=== PATIENT | female | born 1950 | race African-American/Black ===

== ENCOUNTER 2017-11-05 16:08 | Emergency (ER) | payer MEDICARE, MEDICAID ==
[~2017-11-05] VITALS: Ht 162.6 cm; Wt 65.0 kg
[~2017-11-05 16:08] MED LIST: AMLO10TA2 PO; ATOR20TA15 PO; LOSA50TA PO; METO25TA3 PO; RENATAB6 PO; SEVE800 PO; VITA2000 PO
[2017-11-05 16:14] VITALS: BP 156/67; PULSE 62; RESP 17; TEMP 98.1; O2SAT 98
--- NOTE | 2017-11-05 17:19 | RADRPT ---
EXAM DATE/TIME: 11/05/2017 17:09 [place] COMPARISON: No previous studies available for comparison. INDICATIONS : Patient complains of tuft pain on 5th digit, left foot. Injury 6 months ago but starting to hurt chivo horn recently. MEDICAL HISTORY : None. SURGICAL HISTORY : None. ENCOUNTER: Initial ACUITY: 2 days PAIN SCORE: 10/10 LOCATION: Left foot, 5th tuft. FINDINGS: Examination of the fifth digit of the left foot demonstrates no evidence of fracture or dislocation. No radiopaque foreign bodies are seen. The soft tissues are intact. CONCLUSION: Negative for fracture Ananda Kevin MD FACR on November 05, 2017 at 17:17 Board Certified Radiologist. This report was verified electronically.
[2017-11-05] MEDS ORDERED: DICL75TA PO (17:24)
[2017-11-05] MEDS ORDERED: CEPH-460 PO (17:24)
--- NOTE | 2017-11-05 17:48 | PD ---
HPI Chief Complaint: Skin Problem Time Seen by Provider: 16:51 Travel History International Travel<30 days: No Contact w/Intl Traveler<30days: No Traveled to known affect area: No History of Present Illness HPI 67-year-old female that presents to the ED for evaluation of left fifth toe pain that she has had for "a while". Per patient she has been developing this pain for some time. Per patient she went to see her doctor who recommended she go see a lead generation representative for x-rays and further eval. She comes here to get evaluated because she has not been able to follow-up with a lead generation representative. She states that the pain comes and goes and when he gets severe is 8 out of [address] to her knee. Per patient she denies any injury or trauma. She is concerned for infection. She has a history of diabetes. No other medical issues. No urinary bowel movement issues. No fevers chills or sweats. No swelling. No previous surgeries. Has not taken anything for this. PFSH Past Medical History Arthritis: Yes (rheumatoid ) Blood Disorders: Yes Cancer: No Cardiovascular Problems: No Cerebrovascular Accident: Yes Diabetes: No Diminished Hearing: No Endocrine: No Genitourinary: No Hepatitis: No Hiatal Hernia: No Hypertension: Yes Immune Disorder: No Medical other: Yes (Hx of blood clots) Musculoskeletal: No Neurologic: Yes (stroke in November 2015 loss of balance) Psychiatric: No Reproductive: No Respiratory: No Renal Failure: Yes Thyroid Disease: No Tetanus Vaccination: Unknown Influenza Vaccination: Yes Menopausal: Yes : 4 Para: 4 Past Surgical History AICD: No Body Medical Devices: r vas cath port Joint Replacement: No Pacemaker: No Other Surgery: Yes (FISTULA RUE FOR DIALYSIS) Social History Alcohol Use: No Tobacco Use: No Substance Use: No Allergies-Medications (Allergen,Severity, Reaction): Coded Allergies: No Known Allergies (Verified Adverse Reaction, Unknown, 11/05/17) Reported Meds & Prescriptions Reported Meds & Active Scripts Active Keflex (Cephalexin) 500 Mg Cap 500 Mg PO Q8H [address] (Diclofenac Sodium) 75 Mg Tabdr 75 Mg PO BID PRN Reported Vitamin D3 (Cholecalciferol) 2,000 Unit Cap 2,000 Units PO DAILY Atorvastatin (Atorvastatin Calcium) 20 Mg Tab 20 Mg PO HS Metoprolol Tartrate 25 Mg Tab 25 Mg PO BID Amlodipine (Amlodipine Besylate) 10 Mg Tab 10 Mg PO DAILY Review of Systems Except as stated in HPI: all other systems reviewed are Neg Physical Exam Narrative GENERAL: SKIN: Warm and dry. HEAD: Atraumatic. Normocephalic. EYES: Pupils equal and round. No scleral icterus. No injection or drainage. ENT: No nasal bleeding or discharge. Mucous membranes pink and moist. Tongue is midline. No uvula deviation. NECK: Trachea midline. No JVD. CARDIOVASCULAR: Regular rate and rhythm. No murmurs, S3, S4. RESPIRATORY: No accessory muscle use. Clear to auscultation. Breath sounds equal bilaterally. GASTROINTESTINAL: Abdomen soft, non-tender, nondistended. Hepatic and splenic margins not palpable. MUSCULOSKELETAL: Extremities without clubbing, cyanosis, or edema. No obvious deformities. Full range of motion of the upper and lower extremities bilaterally. 2+ pulses bilaterally. Full range of motion of all toes. No obvious deformity to the toes especially to the fifth toe although she does appear to have a little bit more swelling on the left toe than the right. The nail itself appears to be intact and there is no sign of purulence although there is some swelling on the side of the nail. NEUROLOGICAL: Awake and alert. No obvious cranial nerve deficits. Motor grossly within normal limits. Five out of 5 muscle strength in the arms and legs. Normal speech. PSYCHIATRIC: Appropriate mood and affect; insight and judgment normal. Data Data Last Documented VS Vital Signs Date Time Temp Pulse Resp B/P (MAP) Pulse Ox O2 Delivery O2 Flow Rate FiO2 11/05/17 16:59 18 11/05/17 16:14 98.1 62 156/67 (96) 98 Orders Orders Toe (Min 2vws) (11/05/17 ) [facility] Medical Decision Making Medical Screen Exam Complete: Yes Emergency Medical Condition: Yes Medical Record Reviewed: Yes Differential Diagnosis Paronychia versus chronic pain versus gout versus cellulitis versus fracture Narrative Course 67-year-old female that presents to the ED for evaluation of left fifth toe pain. Patient was properly examined and was found to have signs and symptoms of unclear etiology would likely chronic. She does have a history of gout but does not appear to be gout. X-ray was ordered. X-ray was negative for acute disease. Patient was reassured. Patient does have a little bit of swelling compared to the left. Do not think that this is infected but will cover with Keflex for possible infection. Patient was given a prescription for diclofenac sodium for pain to use only if needed. Recommend that she follows up with a lead generation representative as her doctor wanted her to. See ED if worsening symptoms. Follow- up with PCP. Diagnosis Primary Impression: Toe pain, left Patient Instructions: General Instructions Additional Instructions: Take medications as prescribed. Follow with your lead generation representative. See ED if worsening symptoms. Med/Other Pt SpecificInfo: Prescription(s) given Scripts Cephalexin (Keflex) 500 Mg Cap 500 MG PO Q8H for Infection for 10 Days, #30 CAP 0 Refills Prov: Jose Ramon Perez MD 11/05/[address] (Diclofenac Sodium DR) 75 Mg Tabdr 75 MG PO BID Y for PAIN SCALE 1 TO 10, #20 TAB 0 Refills Prov: Jose Ramon Perez MD 11/05/17 Disposition: 01 DISCHARGE HOME Condition: Stable Surya Toscano November 05, 2017 17:48
[2017-11-05 18:20] VITALS: BP 130/76; TEMP 97.8
== END 2017-11-05 18:20 | disposition home or self-care (01) ==
LOC: NEPC 16:08
DX: M79.675 Pain in left toe(s) (principal); I12.0 Hypertensive chronic kidney disease with stage 5 chronic kidney disease or end stage renal disease; E11.22 Type 2 diabetes mellitus with diabetic chronic kidney disease; N18.6 End stage renal disease; Z99.2 Dependence on renal dialysis; Z86.718 Personal history of other venous thrombosis and embolism; Z86.73 Personal history of transient ischemic attack (TIA), and cerebral infarction without residual deficits
CPT/HCPCS: 73660; 99283

== ENCOUNTER 2018-05-06 17:18 | Observation (INO) ==
--- NOTE | 2018-05-06 18:53 | ED ---
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 She reports that today she was at dialysis when at 4:30 PM she developed some shortness of breath and "tunnel vision." She reports that the symptoms lasted for 10 seconds and then resolved. She was sent here for further evaluation. She reports that received most of the dialysis treatment however missed the last hour. She is currently asymptomatic. She denies any chest pain. She denies any cough, congestion, abdominal pain, nausea, vomiting, diarrhea, recent illness. She reports that this is happened 4 times in the past while receiving dialysis. She has no other complaints at this time. Related Data Home Medications Medication Instructions Recorded Confirmed amlodipine 10 mg PO DAILY 04/19/18 05/06/18 atorvastatin 10 mg PO DAILY 04/19/18 05/06/18 cholecalciferol (vitamin D3) 1,000 unit PO DAILY 04/19/18 05/06/18 [Vitamin D3] Previous Rx's Medication Instructions Recorded sodium polystyrene sulfonate 60 ml PO DAILY #120 ml 04/20/18 [sodium polystyrene (sorb free)] hydralazine 25 mg PO TID 30 Days #90 tab 05/07/18 Allergies Allergy/AdvReac Type Severity Reaction Status Date / Time No Known Allergies Allergy Verified 04/20/18 17:52 Review of Systems ROS: all other systems reviewed are negative PMFSH Social History Social History Substance History: No History of Abuse Second Hand Smoke Exposure: No Smoking Status: Former smoker Tobacco Type: Cigarettes How Often Do You Have a Drink Containing Alcohol: Never Recent Travel in [place] within the Last 8 Weeks: No Recent Out of Country Travel within the Last 8 Weeks: No Immunization History Tetanus Immunization: Unsure Exam Narrative Exam Narrative: GENERAL: Well-developed well-nourished female no acute distress SKIN: Warm and dry. HEAD: Atraumatic. Normocephalic. EYES: Pupils equal and round. No scleral icterus. No injection or drainage. ENT: No nasal bleeding or discharge. Mucous membranes pink and moist. NECK: Trachea midline. No JVD. CARDIOVASCULAR: Regular rate and rhythm. No murmur appreciated. RESPIRATORY: No accessory muscle use. Clear to auscultation. Breath sounds equal bilaterally. GASTROINTESTINAL: Abdomen soft, non-tender, nondistended. Hepatic and splenic margins not palpable. MUSCULOSKELETAL: No obvious deformities. No clubbing. No cyanosis. No edema. Right upper extremity AV fistula noted with palpable thrill. NEUROLOGICAL: Awake and alert. No obvious cranial nerve deficits. Motor grossly within normal limits. Normal speech. Course Initial Documented Vital Signs Temperature 98.1 F 05/06/18 17:23 Pulse Rate 78 05/06/18 17:23 Respiratory Rate 22 05/06/18 17:23 Blood Pressure 140/58 L 05/06/18 17:23 Pulse Oximetry 98 05/06/18 17:23 Last Documented Vital Signs Temperature 99.0 F 05/07/18 12:00 Pulse Rate 68 05/07/18 12:00 Respiratory Rate 16 05/07/18 12:00 Blood Pressure 165/78 H 05/07/18 12:00 Pulse Oximetry 99 05/07/18 12:[address] [facility] Narrative Medical decision making narrative: 68-year-old female presents after having a 10 -second episode of dyspnea and "tunnel vision" during dialysis today. Otherwise asymptomatic, currently asymptomatic. She appears well. She was here in April under similar circumstances. The patient was placed on ECG monitoring pulse oximetry. A 12-lead EKG was obtained. Lab work, chest x-ray ordered. EKG reveals sinus rhythm with a rate of 69, prolonged QTC at 450ms, last EKG in April revealed prolonged QTC as well. Lab work consistent with renal failure otherwise unremarkable with no electrolyte abnormalities. Chest x-ray reveals no acute abnormalities. At this point no obvious etiology for her symptoms, discussed with my attending and the plan will be to admit her for observation. Medical Screen Exam Complete: Yes Emergency Medical Condition: Yes Differential Diagnosis Differential Diagnosis: Hypotensive episode, pulmonary edema, arrhythmia, electrolyte abnormality, spontaneous pneumothorax, pulmonary embolism Lab Data Result diagrams: 05/07/18 07:27 05/07/18 07:27 Lab Results 05/06/18 05/06/18 05/06/18 Range/Units 18:50 18:50 18:56 WBC 6.7 (4.0-11.0) th/mm3 RBC 4.01 (4.00-5.30) mil/mm3 Hgb 12.8 (11.6-15.3) gm/dL Hct 40.2 (35.0-46.0) % MCV 100.1 H (80.0-100.0) fL MCH 32.0 (27.0-34.0) pg MCHC 31.9 L (32.0-36.0) % RDW 15.5 (11.6-17.2) % Plt Count 169 D (150-450) th/mm3 MPV 7.6 (7.0-11.0) fL Neut % (Auto) 68.6 (16.0-70.0) % Lymph % (Auto) 22.5 (9.0-44.0) % Cooper % (Auto) 8.1 H (0.0-8.0) % Eos % (Auto) 0.4 (0.0-4.0) % Baso % (Auto) 0.4 (0.0-2.0) % Neut # (Auto) 4.6 (1.8-7.7) th/mm3 Lymph # (Auto) 1.5 (1.0-4.8) th/mm3 Cooper # (Auto) 0.5 (0.0-0.9) th/mm3 Eos # (Auto) 0.0 (0.0-0.4) th/mm3 Baso # (Auto) 0.0 (0.0-0.2) th/mm3 WBC Differential . Differential Comment Auto diff final Sodium 141 (136-145) meq/L Potassium 3.8 (3.5-5.1) meq/L Chloride 98 (98-107) meq/L Carbon Dioxide 30.8 (21.0-32.0) meq/L Anion Gap 12 (5-15) meq/L BUN 22 H (7-18) mg/dL Creatinine 7.08 H (0.50-1.00) mg/dL Estimated GFR 7 L (>89) mL/min POC Glucose 118 H (68-110) mg/dl Random Glucose 118 H (74-106) mg/dL Calcium 9.0 (8.5-10.1) mg/dL Phosphorus 4.5 (2.5-4.9) mg/dL Magnesium 2.3 (1.5-2.5) mg/dL Total Bilirubin (0.2-1.0) mg/dL AST (15-37) U/L ALT (10-53) U/L Alkaline Phosphatase (45-117) U/L Total Creatine Kinase 57 (26-192) U/L Troponin I Less than 0.02 L (0.02-0.05) ng/mL Total Protein (6.4-8.2) g/dL Albumin (3.4-5.0) g/dL 05/07/18 05/07/18 05/07/18 Range/Units 00:10 05:55 07:27 WBC 5.6 (4.0-11.0) th/mm3 RBC 3.50 L (4.00-5.30) mil/mm3 Hgb 11.6 (11.6-15.3) gm/dL Hct 35.4 (35.0-46.0) % MCV 101.4 H (80.0-100.0) fL MCH 33.2 (27.0-34.0) pg MCHC 32.7 (32.0-36.0) % RDW 16.2 (11.6-17.2) % Plt Count 145 L (150-450) th/mm3 MPV 7.4 (7.0-11.0) fL Neut % (Auto) 54.8 (16.0-70.0) % Lymph % (Auto) 33.0 (9.0-44.0) % Cooper % (Auto) 10.4 H (0.0-8.0) % Eos % (Auto) 1.2 (0.0-4.0) % Baso % (Auto) 0.6 (0.0-2.0) % Neut # (Auto) 3.0 (1.8-7.7) th/mm3 Lymph # (Auto) 1.8 (1.0-4.8) th/mm3 Cooper # (Auto) 0.6 (0.0-0.9) th/mm3 Eos # (Auto) 0.1 (0.0-0.4) th/mm3 Baso # (Auto) 0.0 (0.0-0.2) th/mm3 WBC Differential . Differential Comment Auto diff final Sodium (136-145) meq/L Potassium (3.5-5.1) meq/L Chloride (98-107) meq/L Carbon Dioxide (21.0-32.0) meq/L Anion Gap (5-15) meq/L BUN (7-18) mg/dL Creatinine (0.50-1.00) mg/dL Estimated GFR (>89) mL/min POC Glucose (68-110) mg/dl Random Glucose (74-106) mg/dL Calcium (8.5-10.1) mg/dL Phosphorus (2.5-4.9) mg/dL Magnesium (1.5-2.5) mg/dL Total Bilirubin (0.2-1.0) mg/dL AST (15-37) U/L ALT (10-53) U/L Alkaline Phosphatase (45-117) U/L Total Creatine Kinase (26-192) U/L Troponin I Less than 0.02 L Less than 0.02 L (0.02-0.05) ng/mL Total Protein (6.4-8.2) g/dL Albumin (3.4-5.0) g/dL 05/07/18 Range/Units 07:27 WBC (4.0-11.0) th/mm3 RBC (4.00-5.30) mil/mm3 Hgb (11.6-15.3) gm/dL Hct (35.0-46.0) % MCV (80.0-100.0) fL MCH (27.0-34.0) pg MCHC (32.0-36.0) % RDW (11.6-17.2) % Plt Count (150-450) th/mm3 MPV (7.0-11.0) fL Neut % (Auto) (16.0-70.0) % Lymph % (Auto) (9.0-44.0) % Cooper % (Auto) (0.0-8.0) % Eos % (Auto) (0.0-4.0) % Baso % (Auto) (0.0-2.0) % Neut # (Auto) (1.8-7.7) th/mm3 Lymph # (Auto) (1.0-4.8) th/mm3 Cooper # (Auto) (0.0-0.9) th/mm3 Eos # (Auto) (0.0-0.4) th/mm3 Baso # (Auto) (0.0-0.2) th/mm3 WBC Differential Differential Comment Sodium 139 (136-145) meq/L Potassium 4.4 (3.5-5.1) meq/L Chloride 99 (98-107) meq/L Carbon Dioxide 27.6 (21.0-32.0) meq/L Anion Gap 12 (5-15) meq/L BUN 35 H (7-18) mg/dL Creatinine 9.26 H (0.50-1.00) mg/dL Estimated GFR 5 L (>89) mL/min POC Glucose (68-110) mg/dl Random Glucose 108 H (74-106) mg/dL Calcium 8.8 (8.5-10.1) mg/dL Phosphorus (2.5-4.9) mg/dL Magnesium (1.5-2.5) mg/dL Total Bilirubin 0.4 (0.2-1.0) mg/dL AST 9 L (15-37) U/L ALT 17 (10-53) U/L Alkaline Phosphatase 66 (45-117) U/L Total Creatine Kinase (26-192) U/L Troponin I (0.02-0.05) ng/mL Total Protein 7.4 (6.4-8.2) g/dL Albumin 3.6 (3.4-5.0) g/dL Imaging Data Radiologist's impression: Chest X-Ray 05/06/18 18:47 CONCLUSION: No acute cardiopulmonary process. Discharge Plan Discharge Disposition Patient Disposition: 30 Still Patient Discharge Condition Condition: Stable Discharge Order Discharge Orders: Discharge Order (Routine); Ordered 05/07/18 Ordered By: Jazmin Bonilla Discharge Details Anticipated Discharge Date: 05/07/18 Diagnosis: Dyspnea, Near syncope, Prolonged QT interval Physicians Team ED Provider: Shabbir Tolbert ED Midlevel Provider: Godfrey Mc Primary Care Provider: UNKNOWN, Attending Provider: Ananda Locke Status ED Status: Left Department Discharge Information Discharge Date/Time: 05/06/18 22:16
--- NOTE | 2018-05-06 19:18 | XR ---
EXAM DATE: 05/06/2018 7:15 PM EDT AGE/SEX: 68 years / Female INDICATIONS: . Shortness of breath, increased blood pressure for 4 days CLINICAL DATA: This is the patient's initial encounter. Patient reports that signs and symptoms have been present for 4 - 6 days and indicates a pain score of 0/10. MEDICAL/SURGICAL HISTORY: None. None. COMPARISON: No prior exams available for comparison. FINDINGS: PA and lateral views of the chest demonstrate the lungs to be symmetrically aerated without evidence of mass, infiltrate or effusion. The cardiomediastinal contours are unremarkable. Osseous structures are intact. CONCLUSION: No acute cardiopulmonary process. Electronically signed by: Jim Bunch MD 05/06/2018 7:16 PM EDT
[2018-05-06 19:44] LABS: Baso % (Auto) 0.4 % (0.0-2.0); Eos % (Auto) 0.4 % (0.0-4.0); Hematocrit 40.2 % (35.0-46.0); Hemoglobin 12.8 gm/dL (11.6-15.3); Lymph # (Auto) 1.5 th/mm3 (1.0-4.8); Lymph % (Auto) 22.5 % (9.0-44.0); Mean Corpuscular HGB Conc 31.9 % (32.0-36.0); Mean Corpuscular Volume 100.1 fL (80.0-100.0); Mean Platelet Volume 7.6 fL (7.0-11.0); Mono # (Auto) 0.5 th/mm3 (0.0-0.9); Mono % (Auto) 8.1 % (0.0-8.0); Neut # (Auto) 4.6 th/mm3 (1.8-7.7); Neut % (Auto) 68.6 % (16.0-70.0); Platelet Count 169 th/mm3 (150-450); Red Blood Count 4.01 mil/mm3 (4.00-5.30); Red Cell Distribution Width 15.5 % (11.6-17.2); White Blood Count 6.7 th/mm3 (4.0-11.0)
[2018-05-06 20:17] LABS: Anion Gap 12 meq/L (5-15); Blood Urea Nitrogen 22 mg/dL (7-18); Carbon Dioxide 30.8 meq/L (21.0-32.0); Chloride 98 meq/L (98-107); Glomerular Filtration Rate 7 mL/min (>89); Glucose,Random 118 mg/dL (74-106); Magnesium 2.3 mg/dL (1.5-2.5); Potassium 3.8 meq/L (3.5-5.1); Sodium 141 meq/L (136-145)
[2018-05-06 20:21] LABS: Phosphorus 4.5 mg/dL (2.5-4.9)
[2018-05-06 20:28] LABS: Creatine Kinase 57 U/L (26-192)
--- NOTE | 2018-05-06 20:50 | P.HPIM ---
History of Present Illness Primary Care Physician: UNKNOWN History of Present Illness: This is a 68-year-old female with a PMH of HTN, Hyperlipidemia and ESRD on HD M/ W/ who was referred to the ER from dialysis after near syncopal event. Pt states she had episode of dizziness and tunnel vision while getting dialysis, states "everything went black", doesn't believe she had LOC but is unsure. No c /o chest pain but notes SOB. No h/o similar symptoms, but reports similar episodes of SOB x4 in the past, did not seek medical treatment. States unable to complete dialysis today due to symptoms, had 1hr remaining, states was supposed to have 4.3L off, however unsure how much removed. On arrival, BP 140/ 58, HR 78, O2 sat 98% on RA, Afebrile. CBC unremarkable. Chemistry essentially at baseline. Troponin negative. CXR with no acute findings. Currently symptom-free. - Diagnosis (1) ESRD (end stage renal disease) on dialysis (2) Near syncope (3) Prolonged QT interval Review of Systems PAST FAMILY HISTORY: Reviewed. No h/o DM or CAD All other systems reviewed negative except as stated in HPI PMFSH - History History Provided By: Patient - Medical History Medical History: Medical History (Last Reviewed 05/06/18 @ 18:44 by Ruslan Morrow RN) CKD (chronic kidney disease) stage 4, GFR 15-29 ml/min GERD (gastroesophageal reflux disease) Gout Hyperlipemia Hypertension Hyperuricemia Murmur Osteoarthritis Renal cyst Vitamin D deficiency - Surgical History Surgical History: Surgical History (Last Reviewed 05/06/18 @ 18:44 by Ruslan Morrow RN) S/P arteriovenous (AV) fistula creation - Tobacco History Second Hand Smoke Exposure: No Smoking Status: Never smoker Tobacco Type: Cigarettes - Alcohol History How Often Do You Have a Drink Containing Alcohol: Never - Substance Use History Substance History: No History of Abuse - Travel History Recent Travel in the [place] Within the Last 8 Weeks: No Recent Travel Out of the Country Within the Last 8 Weeks: No - Immunization History Tetanus Immunization: Unsure Medications and Allergies Active Medications: Active Medications Sodium Chloride (Ns Flush) 2 ml IV.FLUSH PRN PRN PRN Reason: FLUSH AFTER USING IV ACCESS Allergies Allergy/AdvReac Type Severity Reaction Status Date / Time No Known Allergies Allergy Verified 10/17/18 17:52 Home Medications Medication Instructions Recorded Confirmed Type amlodipine 10 mg PO DAILY 04/19/18 05/06/18 History atorvastatin 10 mg PO DAILY 04/19/18 05/06/18 History cholecalciferol (vitamin D3) 1,000 unit PO DAILY 04/19/18 05/06/18 History [Vitamin D3] metoprolol tartrate 50 mg PO DAILY 04/19/18 05/06/18 History Exam Vital signs: Vital Signs 05/06/18 17:23 05/06/18 18:45 05/06/18 18:48 Temperature 98.1 F Pulse Rate 78 68 Respiratory Rate 22 16 Blood Pressure 140/58 L 159/70 H Pulse Oximetry 98 100 100 05/06/18 19:01 Temperature Pulse Rate 70 Respiratory Rate Blood Pressure Pulse Oximetry Intake & Output 05/06/18 05/06/18 05/07/18 06:59 18:59 06:59 Weight 65.317 kg Narrative: PE: GENERAL: Very pleasant middle-aged black female in no acute distress. Sitting up eating dinner, daughter at bedside. SKIN: Focused skin assessment warm and dry. HEENT: PERRLA, EOMI. No scleral icterus or conjunctival pallor. No lid lag or facial droop. CARDIOVASCULAR: Regular rate and rhythm. +systolic murmur III/IV. No chest tenderness to palpation. RESPIRATORY: No obvious rhonchi or wheezing. Clear to auscultation. Breath sounds equal bilaterally. GASTROINTESTINAL: Abdomen soft, non-tender, nondistended. BS normal. MUSCULOSKELETAL: Extremities without clubbing, cyanosis, or edema. No obvious deformities. RUE AV Fistula, good thrill NEUROLOGICAL: Awake, alert and oriented x4. No focal neurologic deficits. Moving both upper and lower extremities spontaneously. PSYCHIATRIC: Appropriate mood and affect. Insight and judgment normal. Results - Labs CBC & Chem 7: 05/06/18 18:50 05/06/18 18:50 Labs: Short CBC 05/06/18 Range/Units 18:50 WBC 6.7 (4.0-11.0) th/mm3 Hgb 12.8 (11.6-15.3) gm/dL Hct 40.2 (35.0-46.0) % Plt Count 169 D (150-450) th/mm3 BMP 05/06/18 18:50 Sodium 141 Potassium 3.8 Chloride 98 Carbon Dioxide 30.8 BUN 22 H Creatinine 7.08 H Calcium 9.0 Cardiac Enzymes 05/06/18 Range/Units 18:50 Total Creatine Kinase 57 (26-192) U/L Troponin I Less than 0.02 L (0.02-0.05) ng/mL - Imaging Impressions Chest X-Ray 05/06/18 18:47 CONCLUSION: No acute cardiopulmonary process. Caprini VTE Risk Assessment Caprini VTE Risk Assessment: No/Low Risk (score <= 1) Caprini Risk Assessment Model: Point Value = 1 Point Value = 2 Point Value = 3 Point Value = 5 Age 41-60 Minor surgery BMI > 25 kg/m2 Swollen legs Varicose veins or History of unexplained or recurrent spontaneous Oral contraceptives or hormone replacement Sepsis (< 1 month) Serious lung disease, including pneumonia (< 1 month) Abnormal pulmonary function Acute myocardial infarction Congestive heart failure (< 1 month) History of inflammatory bowel disease Medical patient at bed rest Age 61-74 Arthroscopic surgery Major open surgery (> 45 min) Laparoscopic surgery (> 45 min) Malignancy Confined to bed (> 72 hours) Immobilizing plaster cast Central venous access Age >= 75 History of VTE Family history of VTE Factor V Leiden Prothrombin [id number] Lupus anticoagulant Anticardiolipin antibodies Elevated serum homocysteine Heparin-induced thrombocytopenia Other congenital or acquired thrombophilia Stroke (< 1 month) Elective arthroplasty Hip, pelvis, or leg fracture Acute spinal cord injury (< 1 month) Prophylaxis Regimen: Total Risk Factor Score Risk Level Prophylaxis Regimen 0-1 Low Early ambulation 2 Moderate Order ONE of the following: *Sequential Compression Device (SCD) *Heparin 5000 units SQ BID 3-4 Higher Order ONE of the following medications: *Heparin 5000 units SQ TID *Enoxaparin/Lovenox 40 mg SQ daily (WT < 150 kg, CrCl > 30 mL/min) *Enoxaparin/Lovenox 30 mg SQ daily (WT < 150 kg, CrCl > 10-29 mL/min) *Enoxaparin/Lovenox 30 mg SQ BID (WT < 150 kg, CrCl > 30 mL/min) AND/OR *Sequential Compression Device (SCD) 5 or more Highest Order ONE of the following medications: *Heparin 5000 units SQ TID (Preferred with Epidurals) *Enoxaparin/Lovenox 40 mg SQ daily (WT < 150 kg, CrCl > 30 mL/min) *Enoxaparin/Lovenox 30 mg SQ daily (WT < 150 kg, CrCl > 10-29 mL/min) *Enoxaparin/Lovenox 30 mg SQ BID (WT < 150 kg, CrCl > 30 mL/min) AND *Sequential Compression Device (SCD) Assessment and Plan - Assessment (1) ESRD (end stage renal disease) on dialysis Code(s): N18.6 - End stage renal disease; Z99.2 - Dependence on renal dialysis Status: Acute (2) Near syncope Code(s): R55 - Syncope and collapse Status: Acute (3) Prolonged QT interval Code(s): R94.31 - Abnormal electrocardiogram [ECG] [EKG] Status: Acute - Plan A/P: 1. Near Syncope: episode of dizziness/tunnel vision, unclear if LOC, no reported chest pain but +SOB. Will admit for Observation, telemetry, +murmur, check Echo to eval for valvular abnormality/cardiomyopathy. Initial trop negative, check serial cardiac enzymes to eval for underlying ischemia. 2. Abnormal EKG: EKG w/ QTc prolongation, similar to previous EKG, no previous work up per patient, medication list reviewed, unlikely med-related. Avoid Zofran or other QTc prolonging medications. Check serial EKG to eval for changes. Check Echo as above. 3. ESRD on HD: M/W/F, follows w/ Dr. Biswas as outpatient, received HD today but did not complete last 1hr due to symptoms. No evidence of fluid overload. CXR w/ no acute findings, images reviewed. Follow up w/ Dr. Biswas as outpatient to resume HD as scheduled. 4. DVT Prophylaxis: Heparin sq 5. Social work for d/c planning as needed. 6. Case discussed w/ ER physician at length, labs/records/imaging reviewed by me.
[2018-05-06] MEDS ORDERED: Acetaminophen 325 MG Tablet PO PRN (20:55)
[2018-05-06] MEDS ORDERED: Bisacodyl 10 MG Supp RECTAL PRN (20:55)
[2018-05-06] MEDS: Senna/Docusate Sodium 8.6/50 MG Tablet PO SCH ×2 (21:21→21:22)
[2018-05-07 07:29] VITALS: RESP 16
[2018-05-07 08:27] LABS: Baso % (Auto) 0.6 % (0.0-2.0); Eos # (Auto) 0.1 th/mm3 (0.0-0.4); Eos % (Auto) 1.2 % (0.0-4.0); Hematocrit 35.4 % (35.0-46.0); Hemoglobin 11.6 gm/dL (11.6-15.3); Lymph # (Auto) 1.8 th/mm3 (1.0-4.8); Mean Corpuscular HGB Conc 32.7 % (32.0-36.0); Mean Corpuscular Hemoglobin 33.2 pg (27.0-34.0); Mean Corpuscular Volume 101.4 fL (80.0-100.0); Mean Platelet Volume 7.4 fL (7.0-11.0); Mono # (Auto) 0.6 th/mm3 (0.0-0.9); Mono % (Auto) 10.4 % (0.0-8.0); Neut % (Auto) 54.8 % (16.0-70.0); Platelet Count 145 th/mm3 (150-450); Red Cell Distribution Width 16.2 % (11.6-17.2); White Blood Count 5.6 th/mm3 (4.0-11.0)
[2018-05-07] MEDS ORDERED: Heparin - SQ 10,000 UNITS/ML Vial SQ SCH (09:00)
[2018-05-07] MEDS ORDERED: amLODIPine 10 MG Tablet PO SCH (09:00)
[2018-05-07] MEDS ORDERED: Metoprolol Tartrate 50 MG Tablet PO SCH (09:00)
[2018-05-07 09:13] LABS: Alanine Aminotransferase 17 U/L (10-53); Albumin 3.6 g/dL (3.4-5.0); Alkaline Phosphatase 66 U/L (45-117); Anion Gap 12 meq/L (5-15); Aspartate Aminotransferase 9 U/L (15-37); Blood Urea Nitrogen 35 mg/dL (7-18); Calcium 8.8 mg/dL (8.5-10.1); Carbon Dioxide 27.6 meq/L (21.0-32.0); Chloride 99 meq/L (98-107); Glomerular Filtration Rate 5 mL/min (>89); Glucose,Random 108 mg/dL (74-106); Potassium 4.4 meq/L (3.5-5.1); Sodium 139 meq/L (136-145); Total Protein 7.4 g/dL (6.4-8.2)
[2018-05-07] MEDS: Senna/Docusate Sodium 8.6/50 MG Tablet PO SCH (10:39)
--- NOTE | 2018-05-07 11:51 | P.PN ---
Subjective Interval history: Follow-up for near syncope during dialysis, and mild QTC prolongation. Patient reports feeling back to normal. She denies any further near syncopal episodes. Denies any headache, lightheadedness, dizziness, chest pain, palpitations, shortness of breath, or weakness. She wants to go home. Physical Exam Vital signs: Vital Signs 05/06/18 17:23 05/06/18 18:45 05/06/18 18:48 Temperature 98.1 F Pulse Rate 78 68 Respiratory Rate 22 16 Blood Pressure 140/58 L 159/70 H Pulse Oximetry 98 100 100 05/06/18 19:01 05/06/18 21:20 05/07/18 00:00 Temperature 98.4 F Pulse Rate 70 78 73 Respiratory Rate 20 16 Blood Pressure 145/72 H 144/67 H Pulse Oximetry 98 05/07/18 04:00 05/07/18 07:29 Temperature 98.3 F 99.6 F Pulse Rate 65 67 Respiratory Rate 17 16 Blood Pressure 151/70 H 151/68 H Pulse Oximetry 100 96 Intake & Output 05/06/18 05/07/18 05/07/18 18:59 06:59 18:59 Intake Total 340 / 340 Balance 340 / 340 Weight 65.317 kg 65.317 kg Intake: Oral 340 / 340 Other: Date of Last Bowel Movement 05/05/18 Weight On Admission 65.317 kg Narrative: GENERAL: Well-nourished, well-developed very pleasant female patient in [facility]. SKIN: Warm and dry. No rash. HEENT: Normocephalic. Atraumatic. Pupils equal and round. Mucous membranes pink and moist. CARDIOVASCULAR: Regular rate and rhythm. No murmur appreciated. RESPIRATORY: No accessory muscle use. Clear to auscultation. Breath sounds equal bilaterally. GASTROINTESTINAL: Abdomen soft, non-tender, nondistended. Normoactive bowel sounds x4. MUSCULOSKELETAL: No obvious deformities. Extremities without clubbing, cyanosis , or edema. RUE AV fistula with positive thrill/bruit. NEUROLOGICAL: Awake and alert. No obvious cranial nerve deficits. Motor grossly within normal limits. Moving all extremities spontaneously. Normal speech. PSYCHIATRIC: Appropriate mood and affect; insight and judgment normal. Results - Labs CBC & Chem 7: 05/07/18 07:27 05/07/18 07:27 Laboratory Results - last 24 hr 05/06/18 05/06/18 05/06/18 18:50 18:50 18:56 WBC 6.7 RBC 4.01 Hgb 12.8 Hct 40.2 MCV 100.1 H MCH 32.0 MCHC 31.9 L RDW 15.5 Plt Count 169 D MPV 7.6 Neut % (Auto) 68.6 Lymph % (Auto) 22.5 [place] % (Auto) 8.1 H Eos % (Auto) 0.4 Baso % (Auto) 0.4 Neut # (Auto) 4.6 Lymph # (Auto) 1.5 [place] # (Auto) 0.5 Eos # (Auto) 0.0 Baso # (Auto) 0.0 WBC Differential . Differential Comment Auto diff final Sodium 141 Potassium 3.8 Chloride 98 Carbon Dioxide 30.8 Anion Gap 12 BUN 22 H Creatinine 7.08 H Estimated GFR 7 L POC Glucose 118 H Random Glucose 118 H Calcium 9.0 Phosphorus 4.5 Magnesium 2.3 Total Bilirubin AST ALT Alkaline Phosphatase Total Creatine Kinase 57 Troponin I Less than 0.02 L Total Protein Albumin 05/07/18 05/07/18 05/07/18 00:10 05:55 07:27 WBC 5.6 RBC 3.50 L Hgb 11.6 Hct 35.4 MCV 101.4 H MCH 33.2 MCHC 32.7 RDW 16.2 Plt Count 145 L MPV 7.4 Neut % (Auto) 54.8 Lymph % (Auto) 33.0 [place] % (Auto) 10.4 H Eos % (Auto) 1.2 Baso % (Auto) 0.6 Neut # (Auto) 3.0 Lymph # (Auto) 1.8 [place] # (Auto) 0.6 Eos # (Auto) 0.1 Baso # (Auto) 0.0 WBC Differential . Differential Comment Auto diff final Sodium Potassium Chloride Carbon Dioxide Anion Gap BUN Creatinine Estimated GFR POC Glucose Random Glucose Calcium Phosphorus Magnesium Total Bilirubin AST ALT Alkaline Phosphatase Total Creatine Kinase Troponin I Less than 0.02 L Less than 0.02 L Total Protein Albumin 05/07/18 07:27 WBC RBC Hgb Hct MCV MCH MCHC RDW Plt Count MPV Neut % (Auto) Lymph % (Auto) [place] % (Auto) Eos % (Auto) Baso % (Auto) Neut # (Auto) Lymph # (Auto) [place] # (Auto) Eos # (Auto) Baso # (Auto) WBC Differential Differential Comment Sodium 139 Potassium 4.4 Chloride 99 Carbon Dioxide 27.6 Anion Gap 12 BUN 35 H Creatinine 9.26 H Estimated GFR 5 L POC Glucose Random Glucose 108 H Calcium 8.8 Phosphorus Magnesium Total Bilirubin 0.4 AST 9 L ALT 17 Alkaline Phosphatase 66 Total Creatine Kinase Troponin I Total Protein 7.4 Albumin 3.6 - Imaging Impressions Chest X-Ray 05/06/18 18:47 CONCLUSION: No acute cardiopulmonary process. Assessment and Plan - Assessment (1) ESRD (end stage renal disease) on dialysis Code(s): N18.6 - End stage renal disease; Z99.2 - Dependence on renal dialysis Status: Acute (2) Near syncope Code(s): R55 - Syncope and collapse Status: Acute (3) Prolonged QT interval Code(s): R94.31 - Abnormal electrocardiogram [ECG] [EKG] Status: Acute - Plan 68-year-old female with a PMH of HTN, Hyperlipidemia and ESRD on HD M// who was referred to the ER from dialysis after near syncopal event. Pt states she had episode of dizziness and tunnel vision while getting dialysis, states "everything went black", doesn't believe she had LOC but is unsure. Near Syncope: episode of dizziness/tunnel vision, unclear if LOC, no reported chest pain but +SOB. Suspect secondary to dialysis. Monitor on telemetry, + murmur, check Echo which showed EF 55-60%, otherwise urnemarkable. ACS ruled out with negative serial cardiac enzymes x3. Symptoms resolved. Stable for discharge. Abnormal EKG: EKG w/ QTc prolongation, similar to previous EKG, no previous work up per patient, medication list reviewed, possibly related to metoprolol. D /c metoprolol. Start hydralazine for better BP control. Avoid Zofran or other QTc prolonging medications. Serial EKGs stable. Echo unremarkable as above. Outpatient f/up. ESRD on HD: M//, follows w/ Dr. Biswas as outpatient, received HD 05/06 but did not complete last 1hr due to symptoms. No evidence of fluid overload. CXR w/ no acute findings, images reviewed. Follow up w/ Dr. Biswas as outpatient to resume HD as scheduled. DVT Prophylaxis: Heparin sq Discharge Planning: Discharge patient to home Condition on discharge: Stable Dialysis Diet as tolerated Ad Sharmin activity Rx written: hydralazine 25mg tid Follow-up with primary care physician and nephrology
[2018-05-07 12:40] VITALS: BP 165/78; PULSE 68; TEMP 99; O2SAT 99
--- NOTE | 2018-05-07 14:14 | ECHRPT ---
Indication: Syncope CONCLUSIONS Normal left ventricular size. Wall thickness is measured at the upper limits of normal. The left ventricular systolic function is normal with an estimated ejection fraction in the range of 55-60%. Mitral annular calcification is present. Aortic valve sclerosis is present. BP: / HR: Rhythm: MEASUREMENTS (Male / Female) Normal Values Technical Quality:Fair 2D ECHO LV Diastolic Diameter PLAX 5.0 cm 4.2 - 5.9 / 3.9 - 5.3 cm LV Systolic Diameter PLAX 3.2 cm IVS Diastolic Thickness 1.1 cm 0.6 - 1.0 / 0.6 - 0.9 cm LVPW Diastolic Thickness 1.1 cm 0.6 - 1.0 / 0.6 - 0.9 cm LV Relative Wall Thickness 0.4 RV Internal Dim ED PLAX 1.9 cm LVOT Diameter 1.9 cm Aortic Root Diameter 2.6 cm LA Systolic Diameter LX 3.4 cm 3.0 - 4.0 / 2.7 - 3.8 cm M-MODE AV Cusp Separation MM 2.0 cm DOPPLER AV Peak Velocity 178.0 cm/s AV Peak Gradient 12.7 mmHg LVOT Peak Velocity 151.0 cm/s LVOT Peak Gradient 9.1 mmHg AV Area Cont Eq pk 2.4 cm Mitral E Point Velocity 67.1 cm/s Mitral A Point Velocity 113.0 cm/s Mitral E to A Ratio 0.6 LV E' Lateral Velocity 9.6 cm/s Mitral E to LV E' Lateral Ratio 7.0 LV E' Septal Velocity 5.8 cm/s Mitral E to LV E' Septal Ratio 11.7 PV Peak Velocity 152.0 cm/s PV Peak Gradient 9.2 mmHg FINDINGS LEFT VENTRICLE Normal left ventricular size. Wall thickness is measured at the upper limits of normal. The left ventricular systolic function is normal with an estimated ejection fraction in the range of 55-60%. Doppler parameters are consistent with impaired left ventricular relaxtion (grade 1 diastolic dysfun ction). RIGHT VENTRICLE Normal right ventricular size and systolic function. LEFT ATRIUM The left atrial size is normal. RIGHT ATRIUM The right atrial size is normal. ATRIAL SEPTUM Normal atrial septal thickness without atrial level shunting by limited color doppler interrogation. AORTA The aortic root and proximal ascending aorta are normal in size on limited imaging. MITRAL VALVE Mitral annular calcification is present. AORTIC VALVE Trileaflet aortic valve. Aortic valve sclerosis is present. TRICUSPID VALVE Structurally normal tricuspid valve. No tricuspid valve stenosis or regurgitation. PULMONARY VALVE The pulmonary valve is not well visualized. VESSELS The inferior vena cava is normal in size. PERICARDIUM No pericardial effusion. Sonido Chavez MD (Electronically Signed) Final Date:07 May 2018 14:14
--- NOTE | 2018-05-08 23:59 | ECG ---
Date Performed: 05/07/2018 Time Performed: 05:46:31 PTAGE: 68 years EKG: Sinus rhythm POSSIBLE LEFT ATRIAL ENLARGEMENT NONSPECIFIC T-WAVE ABNORMALITY BORDERLINE ECG PREVIOUS TRACING : 05/06/2018 23.56 Since the previous tracing, no significant change noted DOCTOR: Fritz Valero Interpretating Date/Time 05/08/2018 23:57:52
--- NOTE | 2018-05-09 00:18 | ECG ---
Date Performed: 05/06/2018 Time Performed: 23:56:49 PTAGE: 68 years EKG: Sinus rhythm MINIMAL VOLTAGE CRITERIA FOR LVH, CONSIDER NORMAL VARIANT NONSPECIFIC T-WAVE ABNORMALITY BORDERLINE ECG Since the PREVIOUS TRACING , no significant change noted DOCTOR: Fritz Valero Interpretating Date/Time 05/09/2018 00:15:48
--- NOTE | 2018-05-09 00:24 | ECG ---
Date Performed: 05/06/2018 Time Performed: 19:38:08 PTAGE: 68 years EKG: Sinus rhythm POSSIBLE LEFT ATRIAL ENLARGEMENT POSSIBLE LEFT VENTRICULAR HYPERTROPHY ABNORMAL ECG PREVIOUS TRACING : 04/20/2018 17.53 Since the previous tracing, no significant change noted DOCTOR: Fritz Valero Interpretating Date/Time 05/09/2018 00:23:25
== END 2018-05-07 16:06 | disposition home or self-care (01) ==
LOC: NEDA 17:18 → NEPC 17:18 → NEPHCDU 22:04
PROVIDERS: ADMIT Hospitalist; ATTEND Hospitalist